=== PATIENT | female | born 2005 | race Two or more races ===

== ENCOUNTER 2023-12-19 22:38 | Emergency (ER) | payer OTHER ==
[~2023-12-19] VITALS: Ht 160 cm; Wt 55.8 kg
[2023-12-19] MEDS ORDERED: KETOROLAC TROMETHAMINE 15 MG VIAL IM STA (23:25)
[2023-12-20] MEDS ORDERED: NORFLEX100MG PO (00:08)
[2023-12-20] MEDS ORDERED: ADVIL DUAL ACT1 EACH PO (00:08)
== END 2023-12-20 00:57 | disposition home or self-care (01) ==
LOC: ER 22:39
DX: S13.4XXA Sprain of ligaments of cervical spine, initial encounter (principal); S29.9XXA Unspecified injury of thorax, initial encounter; V49.9XXA Car occupant (driver) (passenger) injured in unspecified traffic accident, initial encounter; Y93.89 Activity, other specified; Y92.413 State road as the place of occurrence of the external cause; Y99.9 Unspecified external cause status

== ENCOUNTER 2024-02-06 13:20 | Emergency (ER) | payer OTHER ==
[~2024-02-06] VITALS: Ht 160 cm; Wt 56.7 kg
[~2024-02-06 13:20] MED LIST: ADVIL DUAL ACT1 EACH PO; NORFLEX100MG PO
[2024-02-06] MEDS ORDERED: ONDANSETRON HCL 2 MG/ML VIAL IV STA (16:22)
[2024-02-06] MEDS ORDERED: ONDANSETRON HCL 2 MG/ML VIAL ONE (16:27)
[2024-02-06 17:08] LABS: HEMATOCRIT 41.5 % (36.0-45.00); HEMOGLOBIN 14.2 g/dL (12.0-15.00); MEAN CELL VOLUME 89.4 fL (80.00-100.00); MEAN CORPUSCULAR HEMOGLOBIN 30.6 pg (27.00-32.0); MEAN CORPUSCULAR HGB CONC 34.3 g/dl (32.0-36.0); PLATELET COUNT 304 K/uL (150-450); RED BLOOD COUNT 4.64 M/uL (4.00-6.00); RED CELL DISTRIBUTION WIDTH 13.9 % (11.5-14.5)
== END 2024-02-06 18:08 | disposition home or self-care (01) ==
LOC: ER 13:22
PROVIDERS: Emergency Medicine
DX: N91.2 Amenorrhea, unspecified (principal)

== ENCOUNTER 2024-09-09 13:17 | Emergency (ER) | payer OTHER ==
[~2024-09-09] VITALS: Ht 160 cm; Wt 65.8 kg
[2024-09-09] MEDS ORDERED: ONDANSETRON 4 MG TAB.RAPDIS PO ONE ×2 (14:00→15:20)
[2024-09-09] MEDS ORDERED: FAMOtidine 40 MG TABLET PO ONE (14:00)
[2024-09-09 15:35] LABS: HEMATOCRIT 37.4 % (36.0-45.00); HEMOGLOBIN 12.8 g/dL (12.0-15.00); MEAN CELL VOLUME 90.8 fL (80.00-100.00); MEAN CORPUSCULAR HEMOGLOBIN 31.2 pg (27.00-32.0); MEAN CORPUSCULAR HGB CONC 34.3 g/dl (32.0-36.0); PLATELET COUNT 317 K/uL (150-450); RED BLOOD COUNT 4.12 M/uL (4.00-6.00); RED CELL DISTRIBUTION WIDTH 14.5 % (11.5-14.5)
[2024-09-09 17:26] LABS: ALBUMIN 3.2 gm/dL (3.4-5.0); BILIRUBIN TOTAL 0.36 mg/dL (0.3-1.2); CALCIUM 9.5 mg/dL (8.5-10.1); CREATININE SERUM 0.55 mg/dL (0.55-1.02); GFR 139.53; GLOBULINA 4.1 G/DL (2.4-3.5); POTASSIUM 4.54 mEq/L (3.5-5.1); TOTAL PROTEIN 7.3 gm/dL (6.4-8.2)
[2024-09-09 20:10] LABS: URINE APPEARANCE Cloudy; URINE BILIRRUBIN Negative (NEGATIVE); URINE BLOOD Negative; URINE COLOR Dark Yellow; URINE GLUCOSE Negative (NEGATIVE); URINE KETONE Negative (NEGATIVE); URINE LEUKOCYTE Negative; URINE NITRATE Negative; URINE PROTEIN Negative (NEGATIVE)
[2024-09-09 20:12] LABS: URINE EPITHELIAL CELLS 191.4 uL (0.0-38.8); URINE RBC 20.1 uL (0.0-20.8); URINE WBC 72.3 uL (0.0-23.2)
[2024-09-09 20:39] LABS: URINE BACTERIA > 9821.5 uL (0.0-1933)
[2024-09-09 20:41] LABS: URINE YEAST NEGATIVE /hpf
== END 2024-09-09 21:38 | disposition home or self-care (01) ==
LOC: ER 13:18
PROVIDERS: General Practice
DX: Z34.90 Encounter for supervision of normal pregnancy, unspecified, unspecified trimester (principal); R10.11 Right upper quadrant pain; Z3A.16 16 weeks gestation of pregnancy